=== PATIENT | female | born 1975 | race Caucasian/White ===

== ENCOUNTER 2018-02-09 08:56 | Emergency (ER) | payer SELFPAY ==
[2018-02-09 09:01] VITALS: BP 131/83; PULSE 75; RESP 20; TEMP 97.9; O2SAT 98
[2018-02-09] MEDS: SODIUM CHLORIDE 0.9% FLUSH 10 ML SOL IV PRN ×2 (09:05→09:20)
[2018-02-09] MEDS ORDERED: HYDROMORPHONE HCL 2 MG/ML SOL IV ONE (09:14)
[2018-02-09] MEDS ORDERED: KETOROLAC TROMETHAMINE 30 MG/ML SOL IV ONE (09:14)
[2018-02-09] MEDS ORDERED: ONDANSETRON HCL 4 MG/2 ML SOL IV ONE (09:14)
[2018-02-09] MEDS ORDERED: KETOROLAC TROMETHAMINE 30 MG/ML SOL ONE (09:14)
[2018-02-09] MEDS ORDERED: ONDANSETRON HCL 4 MG/2 ML SOL ONE (09:14)
[2018-02-09] MEDS ORDERED: HYDROMORPHONE HCL 2 MG/ML SOL ONE (09:19)
[2018-02-09 09:26] LABS: BASOPHILS % (AUTO) 1 % (0-3); EOSINOPHILS % (AUTO) 1 % (0-9); HEMATOCRIT 40 % (35-47); HEMOGLOBIN 14.2 gm/dl (12.0-15.5); LYMPHOCYTES % (AUTO) 24.3 % (10-50); MEAN CORPUSCULAR HEMOGLOBIN 29.6 pg (27.0-32.0); MEAN CORPUSCULAR HGB CONC 35.5 gm/dl (32.0-36.0); MEAN CORPUSCULAR VOLUME 83 fL (81-99); NEUTROPHILS % (AUTO) 64.7 % (37-80)
[2018-02-09 09:42] LABS: CALCIUM 8.9 mg/dl (8.5-10.1); CREATININE 0.91 mg/dl (0.60-1.00); POTASSIUM 3.8 mMol/L (3.5-5.1)
[2018-02-09 09:59] LABS: APPEARANCE,URINE Slightly Cloudy; BILIRUBIN,URINE 1+ (NEGATIVE); COLOR,URINE Yellow; GLUCOSE, URINE (UA) NEGATIVE (NEGATIVE); KETONES,URINE TRACE (NEGATIVE); LEUKOCYTE ESTERASE ,URINE NEGATIVE (NEGATIVE); NITRATE,URINE NEGATIVE (NEGATIVE); OCCULT BLOOD,URINE 3+ (NEG-TRACE); UROBILINOGEN,URINE 0.2 (0.2-1.0 EU)
[2018-02-09 10:15] LABS: BACTERIA 2+ (< 1+); CRYSTALS NEGATIVE (0-3 AVE/HPF); WBC,URINE 0-1 (0-5AV/HPF)
[2018-02-10 11:16] LABS: ICTOTEST,URINE NEGATIVE (NEGATIVE)
== END 2018-02-09 10:44 | disposition home or self-care (01) | DRG 816 ==
LOC: ED 08:56
DX: R59.1 Generalized enlarged lymph nodes (principal)
CPT/HCPCS: 36415; 74176; 80048; 81001; 85025; 87088; 96374; 96375; 99283; 99285; J1170; J1885; J2405